=== PATIENT | male | born 1975 | race Caucasian/White ===

== ENCOUNTER 2019-06-16 12:50 | Emergency (ER) | payer SELFPAY ==
[~2019-06-16] VITALS: Ht 180.3 cm; Wt 80.0 kg
[~2019-06-16 12:50] MED LIST: SULF1TAB47
[2019-06-16] MEDS ORDERED: SODIUM CHLORIDE 0.9% 1,000 ML IV ONE (16:27)
[2019-06-16] MEDS ORDERED: FAMOTIDINE 20MG/2ML VIAL IV STA (16:27)
[2019-06-16] MEDS ORDERED: KETOROLAC 30MG/ML VIAL IV STA (16:27)
[2019-06-16] MEDS ORDERED: MAGNESIUM/ALUMINUM HYDROXIDE/SIMETHICONE 30ML UDC PO STA (16:27)
[2019-06-16] MEDS ORDERED: VISCOUS LIDOCAINE 2% 15 ML UDC PO STA (16:27)
[2019-06-16] MEDS ORDERED: ONDANSETRON HCL 4MG/2ML INJ IV STA (16:27)
[2019-06-16 16:44] LABS: CHLORIDE 103 mEq/L (98-107)
[2019-06-16 16:45] LABS: PROTHROMBIN TIME 10.2 sec (9.6-11.0)
[2019-06-16 16:46] LABS: BASOPHILS % 0.8 % (0.0-2.0); EOSINOPHILS % 1.5 % (0.0-5.0); HEMATOCRIT. 45.6 % (42.0-52.0); HEMOGLOBIN. 15.7 g/dL (14.0-18.0); LYMPHOCYTES % 19.3 % (20.0-50.0); MEAN CORPUSCULAR HEMOGLOBIN 32.7 pg (28.0-32.0); MEAN CORPUSCULAR VOLUME 95.1 fL (80.0-94.0); MEAN PLATELET VOLUME 8.5 fl (7.4-10.4); MONOCYTES % 5.5 % (2.0-8.0); NEUTROPHILS % 72.9 % (40.0-76.0); PLATELET 245 x1000/uL (130-400); RED BLOOD CELL COUNT 4.79 mill/uL (4.7-6.1); RED CELL DISTRIBUTION WIDTH 13.3 % (11.6-14.6)
[2019-06-16 16:47] LABS: ETHANOL BLOOD < 10 mg/dL
[2019-06-16 16:56] LABS: CLARITY URINE CLEAR (CLEAR); COLOR URINE DARK YELLOW (YELLOW); KETONES URINE 1+ (NEGATIVE); LEUKOCYTE ESTERASE URINE NEGATIVE (NEGATIVE); NITRITE URINE NEGATIVE (NEGATIVE); OCCULT BLOOD URINE NEGATIVE (NEGATIVE); PROTEIN URINE TRACE (NEGATIVE); SPECIFIC GRAVITY URINE 1.035 (1.005-1.030)
[2019-06-16 17:10] LABS: *AMPHETAMINES SCREEN URINE PRESUMTIVE POSITIVE (NEGATIVE); *BARBITURATES SCREEN URINE NEGATIVE (NEGATIVE); *BENZODIAZEPINES SCREEN URINE NEGATIVE (NEGATIVE); *COCAINE SCREEN URINE NEGATIVE (NEGATIVE); CANNABINOID URINE SCREEN PRESUMTIVE POSITIVE (NEGATIVE); OPIATES URINE SCREEN PRESUMTIVE POSITIVE (NEGATIVE); PHENCYCLIDINE URINE SCREEN NEGATIVE (NEGATIVE)
[2019-06-16 17:11] LABS: METHADONE URINE SCREEN NEGATIVE (NEGATIVE)
[2019-06-16 18:55] VITALS: BP 142/92
== END 2019-06-16 18:55 | disposition home or self-care (01) ==
LOC: ER 12:50
DX: K29.70 Gastritis, unspecified, without bleeding (principal); F19.10 Other psychoactive substance abuse, uncomplicated; Z90.49 Acquired absence of other specified parts of digestive tract; Z98.890 Other specified postprocedural states; F17.200 Nicotine dependence, unspecified, uncomplicated; F15.10 Other stimulant abuse, uncomplicated; F11.10 Opioid abuse, uncomplicated; Z87.19 Personal history of other diseases of the digestive system
CPT/HCPCS: 36415; 74177; 80053; 80305; 80320; 81003; 83690; 85025; 85610; 96361; 96374; 96375; 99284; 99406; J1885; J2405; J3490; J7030; G0480

== ENCOUNTER 2019-08-04 22:36 | Emergency (ER) | payer SELFPAY | END 2019-08-05 00:04 | disposition left against medical advice (07) | LOC: ER 22:36 | DX: Z53.21 Procedure and treatment not carried out due to patient leaving prior to being seen by health care provider (principal) ==

== ENCOUNTER 2019-08-05 00:39 | Emergency (ER) | payer SELFPAY ==
[~2019-08-05] VITALS: Ht 180.3 cm; Wt 77.0 kg
[2019-08-05] MEDS ORDERED: KETOROLAC 60MG/2ML VIAL IM STA (05:09)
[2019-08-05] MEDS ORDERED: CEPHALEXIN 250MG CAPSULE PO ONE (05:15)
[2019-08-05] MEDS ORDERED: SULFAMETHOXAZOLE/TRIMETHOPRIM 800/160MG TABLET PO ONE (05:15)
[2019-08-05 05:37] VITALS: BP 125/80
== END 2019-08-05 05:38 | disposition home or self-care (01) ==
LOC: ER 00:39
DX: L03.113 Cellulitis of right upper limb (principal)
CPT/HCPCS: 96372; 99283; J1885

== ENCOUNTER 2019-08-07 18:08 | Emergency (ER) | payer SELFPAY ==
[~2019-08-07] VITALS: Ht 180.3 cm; Wt 80.0 kg
[2019-08-07 19:14] VITALS: BP 135/92
== END 2019-08-07 20:00 | disposition left against medical advice (07) ==
LOC: ER 18:08
DX: Z53.21 Procedure and treatment not carried out due to patient leaving prior to being seen by health care provider (principal)

== ENCOUNTER 2019-08-08 09:23 | Inpatient (IN) | payer MEDICAID, OTHER ==
[~2019-08-08] VITALS: Ht 210.8 cm; Wt 78.9 kg
[2019-08-08] MEDS ORDERED: PIPERACILLIN/TAZ 3.375G PREMIX 50 ML IV ONE (11:00)
[2019-08-08] MEDS ORDERED: VANCOMYCIN 1 G PREMIX 200 ML IV ONE (11:00)
[2019-08-08] MEDS ORDERED: KETOROLAC 30MG/ML VIAL IV STA (12:02)
[2019-08-08] MEDS ORDERED: PIPERACILLIN/TAZOBACTAM 3.375 G in DEXT 5% WATER 100 ML IV SCH (12:30)
[2019-08-08 12:39] LABS: BASOPHILS % 0.4 % (0.0-2.0); EOSINOPHILS % 0.9 % (0.0-5.0); HEMATOCRIT. 39.9 % (42.0-52.0); HEMOGLOBIN. 13.6 g/dL (14.0-18.0); LYMPHOCYTES % 8.8 % (20.0-50.0); MEAN CORPUSCULAR HEMOGLOBIN 32.2 pg (28.0-32.0); MEAN CORPUSCULAR VOLUME 94.8 fL (80.0-94.0); MONOCYTES % 6.3 % (2.0-8.0); NEUTROPHILS % 83.6 % (40.0-76.0); RED BLOOD CELL COUNT 4.21 mill/uL (4.7-6.1); RED CELL DISTRIBUTION WIDTH 13.2 % (11.6-14.6)
[2019-08-08 12:44] LABS: PROTHROMBIN TIME 10.3 sec (9.6-11.0)
[2019-08-08 12:47] LABS: CHLORIDE 108 mEq/L (98-107)
[2019-08-08 13:07] LABS: PLATELET ESTIMATE NORMAL
[2019-08-08 13:09] LABS: PLATELET 267 x1000/uL (130-400)
[2019-08-08] MEDS ORDERED: IOHEXOL-350 100 ML BOTTLE ONE (13:57)
[2019-08-08] MEDS ORDERED: DIPHENHYDRAMINE 50MG/ML VIAL IV PRN (15:30)
[2019-08-08] MEDS ORDERED: GUAIFENESIN 200MG/10ML SUGAR FREE UDC PO PRN (15:30)
[2019-08-08] MEDS ORDERED: MAGNESIUM/ALUMINUM HYDROXIDE/SIMETHICONE 30ML UDC PO PRN (15:30)
[2019-08-08] MEDS ORDERED: CLONIDINE 0.1MG TABLET PO PRN (15:30)
[2019-08-08] MEDS ORDERED: ONDANSETRON HCL 4MG/2ML INJ IV PRN (15:30)
[2019-08-08] MEDS ORDERED: IPRATROPIUM/ALBUTEROL 0.5-3(2.5)MG/3ML NEB HHN PRN (15:30)
[2019-08-08] MEDS ORDERED: ACETAMINOPHEN 325MG TABLET PO PRN (15:30)
[2019-08-08] MEDS ORDERED: DOCUSATE SODIUM 100MG CAPSULE PO PRN (15:30)
[2019-08-08] MEDS ORDERED: PIPERACILLIN/TAZ 3.375G PREMIX 50 ML IV SCH (15:30)
[2019-08-08 16:33] LABS: PHOSPHORUS 3.4 mg/dL (2.5-4.9)
[2019-08-08] MEDS: HYDROCODONE/ACETAMINOPHEN 5/325MG TABLET PO PRN ×2 (16:37→20:18)
[2019-08-08 18:34] VITALS: BP 129/79
[2019-08-08 20:00] VITALS: BP 148/70
[2019-08-08] MEDS ORDERED: VANCOMYCIN 1500MG in DEXTROSE 5% WATER 250ML IV NR (20:00)
[2019-08-08] MEDS ORDERED: ENOXAPARIN 40MG/0.4ML SYR SUBCUT SCH (20:00)
[2019-08-08] MEDS: PIPERACILLIN/TAZOBACTAM 3.375 G in DEXT 5% WATER 100 ML IV SCH (20:17)
[2019-08-08] MEDS ORDERED: KETOROLAC 30MG/ML VIAL IV PRN (22:15)
[2019-08-09] VITALS: BP 140/78
[2019-08-09] MEDS: PIPERACILLIN/TAZOBACTAM 3.375 G in DEXT 5% WATER 100 ML IV SCH (01:51)
[2019-08-09 04:00] VITALS: BP 141/72
[2019-08-09] MEDS ORDERED: VANCOMYCIN 1250MG in DEXTROSE 5% WATER 250ML IV SCH (06:00)
[2019-08-09 06:12] LABS: CHLORIDE 106 mEq/L (98-107)
[2019-08-09 06:20] LABS: BASOPHILS % 0.2 % (0.0-2.0); EOSINOPHILS % 0.9 % (0.0-5.0); HEMATOCRIT. 39.2 % (42.0-52.0); HEMOGLOBIN. 13.2 g/dL (14.0-18.0); LYMPHOCYTES % 9.5 % (20.0-50.0); MEAN CORPUSCULAR HEMOGLOBIN 31.8 pg (28.0-32.0); MEAN CORPUSCULAR VOLUME 94.4 fL (80.0-94.0); MEAN PLATELET VOLUME 8.6 fl (7.4-10.4); MONOCYTES % 6.6 % (2.0-8.0); NEUTROPHILS % 82.8 % (40.0-76.0); PLATELET 266 x1000/uL (130-400); RED BLOOD CELL COUNT 4.16 mill/uL (4.7-6.1); RED CELL DISTRIBUTION WIDTH 13.1 % (11.6-14.6)
[2019-08-09 06:23] LABS: LDL CHOLESTEROL 42 mg/dL (5-100)
[2019-08-09 06:25] LABS: HDL CHOLESTEROL 42 mg/dL (40-59)
== END 2019-08-09 07:20 | disposition left against medical advice (07) | DRG 383 ==
LOC: ER 09:23 → 6EST 15:39 → ENRESERV 16:06
PROVIDERS: ADMIT Internal Medicine; ATTEND Internal Medicine
DX: L03.113 Cellulitis of right upper limb (principal); E44.0 Moderate protein-calorie malnutrition; D53.9 Nutritional anemia, unspecified; F17.200 Nicotine dependence, unspecified, uncomplicated; D72.829 Elevated white blood cell count, unspecified; Z53.29 Procedure and treatment not carried out because of patient's decision for other reasons
CPT/HCPCS: 36415; 71045; 73201; 80061; 83735; 84100; 84443; 93005; 93970; 94640; 99285; J1650; J1885; J2543; J3370; J7030; J7040; J7060; J7620; Q9967

== ENCOUNTER 2019-08-09 09:46 | Inpatient (IN) | payer OTHER, MEDICAID ==
[~2019-08-09] VITALS: Ht 180.3 cm; Wt 79.4 kg
[2019-08-09] MEDS ORDERED: SODIUM CHLORIDE 0.9% 1,000 ML IV ONE (10:30)
[2019-08-09] MEDS ORDERED: PIPERACILLIN/TAZOBACTAM 3.375GM/50ML PREMIX IV ONE (10:30)
[2019-08-09] MEDS ORDERED: PIPERACILLIN/TAZOBACTAM 3.375 G in DEXT 5% WATER 100 ML IV SCH ×2 (10:31→20:00)
[2019-08-09 12:00] VITALS: BP 132/80
[2019-08-09 14:07] VITALS: BP 132/80
[2019-08-09 16:00] VITALS: BP 124/77
[2019-08-09] MEDS ORDERED: DIPHENHYDRAMINE 50MG/ML VIAL IV PRN (16:15)
[2019-08-09] MEDS ORDERED: ACETAMINOPHEN 325MG TABLET PO PRN (16:15)
[2019-08-09] MEDS ORDERED: CLONIDINE 0.1MG TABLET PO PRN (16:15)
[2019-08-09] MEDS ORDERED: IBUPROFEN 600MG TABLET PO PRN (16:15)
[2019-08-09] MEDS ORDERED: VANCOMYCIN 1 G PREMIX 200 ML IV SCH ×2 (16:15→21:00)
[2019-08-09] MEDS ORDERED: MAGNESIUM/ALUMINUM HYDROXIDE/SIMETHICONE 30ML UDC PO PRN (16:15)
[2019-08-09] MEDS ORDERED: ONDANSETRON HCL 4MG/2ML INJ IV PRN (16:15)
[2019-08-09] MEDS ORDERED: PIPERACILLIN/TAZ 3.375G PREMIX 50 ML IV SCH ×2 (16:15→20:00)
[2019-08-09] MEDS ORDERED: SODIUM CHLORIDE 0.9% INJ 3ML FLUSH IVF SCH (22:00)
[2019-08-09] MEDS ORDERED: VANCOMYCIN 1250MG in DEXTROSE 5% WATER 250ML IV SCH (22:00)
== END 2019-08-09 19:05 | disposition left against medical advice (07) | DRG 383 ==
LOC: ER 09:46 → 6EST 10:35 → EDBEDREQTM 10:42 → ENRESERV 13:06
PROVIDERS: ADMIT Internal Medicine; ATTEND Internal Medicine
DX: L03.113 Cellulitis of right upper limb (principal); E44.1 Mild protein-calorie malnutrition; F17.200 Nicotine dependence, unspecified, uncomplicated; Z53.29 Procedure and treatment not carried out because of patient's decision for other reasons; Z79.899 Other long term (current) drug therapy; Z68.24 Body mass index [BMI] 24.0-24.9, adult; E83.51 Hypocalcemia
CPT/HCPCS: 99285; J2543; J3370; J7030; J7060

== ENCOUNTER 2020-01-16 11:57 | Emergency (ER) | payer MEDICAID, OTHER ==
[~2020-01-16] VITALS: Ht 177.8 cm; Wt 77.0 kg
[2020-01-16 13:46] VITALS: BP 139/88
== END 2020-01-16 15:28 | disposition left against medical advice (07) ==
LOC: ER 12:05
DX: T40.1X1A Poisoning by heroin, accidental (unintentional), initial encounter (principal); Y92.89 Other specified places as the place of occurrence of the external cause
CPT/HCPCS: 99283

== ENCOUNTER 2020-06-18 00:38 | Emergency (ER) | payer OTHER ==
[~2020-06-18] VITALS: Ht 180.3 cm; Wt 75.0 kg
[2020-06-18 00:46] VITALS: BP 131/87
[2020-06-18] MEDS ORDERED: AMOXICILLIN 500 MG CAPSULE PO ONE (01:15)
[2020-06-18] MEDS ORDERED: ACETAMINOPHEN 325MG TABLET PO ONE (01:15)
== END 2020-06-18 02:12 | disposition home or self-care (01) ==
LOC: ER 00:38
DX: K02.9 Dental caries, unspecified (principal)
CPT/HCPCS: 99283

== ENCOUNTER 2020-07-31 01:38 | Emergency (ER) | payer MEDICAID, OTHER ==
[~2020-07-31] VITALS: Ht 180.3 cm; Wt 74.0 kg
[2020-07-31 01:47] VITALS: BP 131/84
[2020-07-31] MEDS ORDERED: NITROGLYCERIN 0.4MG TABLET SL SL PRN (02:00)
[2020-07-31] MEDS ORDERED: ASPIRIN 81MG TABLET PO ONE (02:00)
== END 2020-07-31 02:09 | disposition left against medical advice (07) ==
LOC: ER 01:38
DX: R07.89 Other chest pain (principal); R51.9 Headache, unspecified
CPT/HCPCS: 93005; 99283

== ENCOUNTER 2020-09-12 05:51 | Emergency (ER) | payer OTHER ==
[~2020-09-12] VITALS: Ht 180.3 cm; Wt 80.0 kg
[2020-09-12] MEDS ORDERED: CEFTRIAXONE SODIUM 250 MG/VIAL IM ONE (06:45)
[2020-09-12] MEDS ORDERED: AZITHROMYCIN 500 MG TABLET PO ONE (06:45)
[2020-09-12 07:09] VITALS: BP 136/73
== END 2020-09-12 07:10 | disposition home or self-care (01) ==
LOC: ER 06:04
DX: A64 Unspecified sexually transmitted disease (principal); F11.10 Opioid abuse, uncomplicated; Z88.2 Allergy status to sulfonamides
CPT/HCPCS: 96372; 99283; J0696

== ENCOUNTER 2020-10-26 11:15 | Emergency (ER) | payer OTHER ==
[~2020-10-26] VITALS: Ht 172.7 cm; Wt 70.0 kg
[2020-10-26 11:16] VITALS: BP 142/90
== END 2020-10-26 11:27 | disposition left against medical advice (07) ==
LOC: ER 11:15
DX: T40.1X1A Poisoning by heroin, accidental (unintentional), initial encounter (principal); X58.XXXA Exposure to other specified factors, initial encounter; F11.10 Opioid abuse, uncomplicated
CPT/HCPCS: 99283

== ENCOUNTER 2021-03-10 01:58 | Emergency (ER) | payer MEDICAID, OTHER ==
[~2021-03-10] VITALS: Ht 180.3 cm; Wt 77.0 kg
[2021-03-10] MEDS ORDERED: KETOROLAC 30MG/ML VIAL IM ONE (03:00)
[2021-03-10] MEDS ORDERED: IBUP-2029 MT (03:30)
[2021-03-10 04:04] VITALS: BP 137/80
== END 2021-03-10 04:07 | disposition home or self-care (01) ==
LOC: ER 01:58
DX: S42.002A Fracture of unspecified part of left clavicle, initial encounter for closed fracture (principal); V28.0XXA Motorcycle driver injured in noncollision transport accident in nontraffic accident, initial encounter; Y93.55 Activity, bike riding; Y92.488 Other paved roadways as the place of occurrence of the external cause; R03.0 Elevated blood-pressure reading, without diagnosis of hypertension
CPT/HCPCS: 71045; 73030; 96372; 99284; J1885

== ENCOUNTER 2021-08-11 23:24 | Emergency (ER) | payer OTHER ==
[~2021-08-11] VITALS: Ht 180.3 cm; Wt 75.0 kg
[~2021-08-11 23:24] MED LIST changes: +IBUP-2029 MT
[2021-08-12] VITALS: BP 146/92
[2021-08-12] MEDS ORDERED: ONDANSETRON 4MG ODT PO ONE (00:45)
[2021-08-12] MEDS ORDERED: CHLORDIAZEPOXIDE 10MG CAPSULE PO ONE (00:45)
== END 2021-08-12 01:29 ==
LOC: ER 23:24
DX: F10.139 Alcohol abuse with withdrawal, unspecified (principal); Y90.0 Blood alcohol level of less than 20 mg/100 ml; F19.239 Other psychoactive substance dependence with withdrawal, unspecified; F15.10 Other stimulant abuse, uncomplicated
CPT/HCPCS: 99283; Q0162

== ENCOUNTER 2021-09-28 22:43 | Emergency (ER) | payer OTHER ==
[~2021-09-28] VITALS: Ht 180.3 cm; Wt 80.0 kg
[2021-09-29] VITALS: BP 147/105
== END 2021-09-29 01:44 | disposition left against medical advice (07) ==
LOC: ER 22:43
DX: Z53.21 Procedure and treatment not carried out due to patient leaving prior to being seen by health care provider (principal)

== ENCOUNTER 2022-02-17 04:58 | Emergency (ER) | payer OTHER ==
[~2022-02-17] VITALS: Ht 180.3 cm; Wt 79.0 kg
[2022-02-17] MEDS ORDERED: IBUP-2029 MT (07:58)
[2022-02-17 08:33] VITALS: BP 128/86
== END 2022-02-17 08:34 | disposition home or self-care (01) ==
LOC: ER 04:58
DX: S62.523A Displaced fracture of distal phalanx of unspecified thumb, initial encounter for closed fracture (principal); S01.111A Laceration without foreign body of right eyelid and periocular area, initial encounter; F15.10 Other stimulant abuse, uncomplicated; W01.0XXA Fall on same level from slipping, tripping and stumbling without subsequent striking against object, initial encounter; Y93.89 Activity, other specified; Y92.89 Other specified places as the place of occurrence of the external cause; Y99.8 Other external cause status
CPT/HCPCS: 12011; 73130; 99283

== ENCOUNTER 2022-04-07 02:02 | Emergency (ER) | payer OTHER ==
[~2022-04-07] VITALS: Ht 180.3 cm; Wt 78.0 kg
[2022-04-07] MEDS ORDERED: AMPICILLIN SOD/SULBACTAM NA 3 G in SODIUM CHLORIDE 0.9% 100 ML IV STA (02:52)
[2022-04-07] MEDS ORDERED: ONDANSETRON HCL 4MG/2ML INJ IV STA (02:52)
[2022-04-07] MEDS ORDERED: MORPHINE SULFATE 4 MG/ML CPJ (NOT FOR IM USE) IV STA (02:52)
[2022-04-07] MEDS ORDERED: SODIUM CHLORIDE 0.9% 1,000 ML IV ONE (03:00)
[2022-04-07 03:43] LABS: BASOPHILS % 0.3 % (0.0-2.0); EOSINOPHILS % 0.3 % (0.0-5.0); HEMATOCRIT. 38.9 % (42.0-52.0); HEMOGLOBIN. 13.1 g/dL (14.0-18.0); LYMPHOCYTES % 28.2 % (20.0-50.0); MEAN CORPUSCULAR HEMOGLOBIN 30.4 pg (28.0-32.0); MEAN PLATELET VOLUME 7.7 fl (7.4-10.4); MONOCYTES % 6.3 % (2.0-8.0); NEUTROPHILS % 64.9 % (40.0-76.0); PLATELET 212 x1000/uL (130-400); RED BLOOD CELL COUNT 4.32 mill/uL (4.7-6.1); RED CELL DISTRIBUTION WIDTH 13.4 % (11.6-14.6)
[2022-04-07 03:53] LABS: CHLORIDE 105 mEq/L (98-107)
[2022-04-07 08:30] VITALS: BP 135/80
[2022-04-07] MEDS ORDERED: T3 PO (09:05)
[2022-04-07] MEDS ORDERED: CLIN-194 MT (09:05)
== END 2022-04-07 11:44 | disposition home or self-care (01) ==
LOC: ER 02:27
DX: K08.89 Other specified disorders of teeth and supporting structures (principal); F17.200 Nicotine dependence, unspecified, uncomplicated; F12.10 Cannabis abuse, uncomplicated
CPT/HCPCS: 36415; 70486; 80053; 82962; 83605; 84145; 85025; 87040; 96365; 96366; 96375; 99285; J0295; J2270; J2405; J7050

== ENCOUNTER 2022-08-09 06:59 | Emergency (ER) | payer OTHER ==
[~2022-08-09] VITALS: Ht 180.3 cm; Wt 73.1 kg
[~2022-08-09 06:59] MED LIST changes: +CLIN-194 MT; +T3 PO
[2022-08-09 12:08] LABS: BASOPHILS % 0.3 % (0.0-2.0); EOSINOPHILS % 2.2 % (0.0-5.0); LYMPHOCYTES % 50.6 % (20.0-50.0); MEAN CORPUSCULAR HEMOGLOBIN 31.3 pg (28.0-32.0); MEAN CORPUSCULAR VOLUME 91.2 fL (80.0-94.0); MEAN PLATELET VOLUME 7.4 fl (7.4-10.4); MONOCYTES % 6.7 % (2.0-8.0); NEUTROPHILS % 40.2 % (40.0-76.0); PLATELET 227 x1000/uL (130-400); RED BLOOD CELL COUNT 4.16 mill/uL (4.7-6.1); RED CELL DISTRIBUTION WIDTH 13.6 % (11.6-14.6)
[2022-08-09 12:18] LABS: CHLORIDE 106 mEq/L (98-107)
[2022-08-09] MEDS ORDERED: IBUP-2029 MT (13:10)
[2022-08-09] MEDS ORDERED: KETOROLAC 15MG/ML VIAL IV ONE (13:15)
[2022-08-09] MEDS ORDERED: T3 PO (13:23)
[2022-08-09 13:25] VITALS: BP 155/98
[2022-08-09] MEDS ORDERED: IOHEXOL-350 100 ML BOTTLE ONE (13:30)
== END 2022-08-09 13:26 | disposition home or self-care (01) ==
LOC: ER 07:12
DX: S22.32XA Fracture of one rib, left side, initial encounter for closed fracture (principal); M25.522 Pain in left elbow; M25.552 Pain in left hip; F12.10 Cannabis abuse, uncomplicated; Z90.49 Acquired absence of other specified parts of digestive tract; Z79.899 Other long term (current) drug therapy; V49.49XA Driver injured in collision with other motor vehicles in traffic accident, initial encounter; Y93.89 Activity, other specified; Y92.89 Other specified places as the place of occurrence of the external cause; Y99.8 Other external cause status
CPT/HCPCS: 36415; 71045; 72170; 73000; 73080; 80048; 85025; 99284; Q9967

== ENCOUNTER 2022-08-15 07:10 | Emergency (ER) | payer OTHER ==
[~2022-08-15] VITALS: Ht 180.3 cm; Wt 73.0 kg
[2022-08-15 07:23] VITALS: BP 152/92
[2022-08-15] MEDS ORDERED: ACETAMINOPHEN 325MG TABLET PO ONE (08:15)
[2022-08-15] MEDS ORDERED: T3 PO (09:04)
== END 2022-08-15 09:25 | disposition home or self-care (01) ==
LOC: ER 07:10
DX: G89.21 Chronic pain due to trauma (principal); M25.512 Pain in left shoulder; Z87.828 Personal history of other (healed) physical injury and trauma
CPT/HCPCS: 73060; 99283; A4565

== ENCOUNTER 2023-01-23 00:54 | Emergency (ER) | payer OTHER ==
[~2023-01-23] VITALS: Ht 180.3 cm; Wt 79.5 kg
[2023-01-23 01:34] VITALS: BP 141/79
== END 2023-01-23 04:08 | disposition left against medical advice (07) ==
LOC: ER 00:54
DX: Z53.21 Procedure and treatment not carried out due to patient leaving prior to being seen by health care provider (principal)
CPT/HCPCS: 99281

== ENCOUNTER 2023-08-09 01:50 | Emergency (ER) | payer MEDICAID, OTHER ==
[~2023-08-09] VITALS: Ht 180.3 cm; Wt 80.0 kg
[2023-08-09 01:58] VITALS: BP 115/79; PULSE 94; RESP 18; TEMP 98.4; O2SAT 97
[2023-08-09 02:29] LABS: CLARITY URINE CLEAR (CLEAR); COLOR URINE YELLOW (YELLOW); GLUCOSE URINE NEGATIVE (NEGATIVE); KETONES URINE NEGATIVE (NEGATIVE); LEUKOCYTE ESTERASE URINE NEGATIVE (NEGATIVE); NITRITE URINE NEGATIVE (NEGATIVE); OCCULT BLOOD URINE NEGATIVE (NEGATIVE); PH URINE 5.5 (4.5-8.0); PROTEIN URINE NEGATIVE (NEGATIVE); SPECIFIC GRAVITY URINE 1.026 (1.005-1.030)
[2023-08-09 05:19] LABS: HEMATOCRIT. 39.9 % (42.0-52.0); HEMOGLOBIN. 13.3 g/dL (14.0-18.0); MEAN CORPUSCULAR HEMOGLOBIN 30.6 pg (28.0-32.0); MEAN CORPUSCULAR HGB CONC 33.3 g/dL (31.0-37.0); MEAN CORPUSCULAR VOLUME 91.7 fL (80.0-94.0); MEAN PLATELET VOLUME 8.4 fl (7.4-10.4); PLATELET 196 x1000/uL (130-400); RED BLOOD CELL COUNT 4.35 mill/uL (4.7-6.1); RED CELL DISTRIBUTION WIDTH 13.6 % (11.6-14.6); WHITE BLOOD COUNT 16.7 x1000/uL (4.5-11.0)
[2023-08-09 05:20] LABS: CHLORIDE 108 mEq/L (98-107); POTASSIUM 3.9 mEq/L (3.5-5.1); SODIUM 138 mEq/L (136-145)
[2023-08-09 05:22] LABS: DIFFERENTIAL COMMENT 1
[2023-08-09 05:27] LABS: ALANINE AMINOTRANSFERASE 61 IU/L (13-61); ALBUMIN 3.7 g/dL (3.4-5.0); ASPARTATE AMINOTRANSFERASE 32 IU/L (15-37); BILIRUBIN TOTAL 0.3 mg/dL (0.1-1.0); CALCIUM 8.6 mg/dL (8.5-10.1); CARBON DIOXIDE 27 mEq/L (21-32); CREATININE 0.8 mg/dL (0.6-1.3); GLUCOSE 88 mg/dL (70-105); PROTEIN TOTAL 6.9 g/dL (6.0-8.3); UREA NITROGEN BLOOD 24 mg/dL (7-21)
[2023-08-09] MEDS ORDERED: IBUP-2029 MT (07:21)
[2023-08-09 09:27] LABS: PLATELET ESTIMATE NORMAL; SMUDGE CELLS 1+
== END 2023-08-09 07:48 | disposition home or self-care (01) ==
LOC: ER 01:50
DX: R30.9 Painful micturition, unspecified (principal); F12.10 Cannabis abuse, uncomplicated; Z79.899 Other long term (current) drug therapy
CPT/HCPCS: 36415; 74176; 80053; 81003; 83605; 85025; 99284